=== PATIENT | male | born 1950 | race Caucasian/White ===

== ENCOUNTER 2023-11-23 08:36 | Outpatient (CLI) | payer OTHER, SELFPAY | END 2023-11-23 08:37 | disposition home or self-care (01) | PROVIDERS: Visit Provider Chiropractor | DX: I51.9 Heart disease, unspecified (principal); I35.1 Nonrheumatic aortic (valve) insufficiency; I34.0 Nonrheumatic mitral (valve) insufficiency | CPT/HCPCS: 93306 ==